=== PATIENT | female | born 2000 | race African-American/Black ===

== ENCOUNTER 2022-02-20 15:40 | Emergency (ER) | payer SELFPAY | END 2022-02-20 17:10 | disposition home or self-care (01) | LOC: CSHERS 15:40 | DX: B34.9 Viral infection, unspecified (principal); J02.9 Acute pharyngitis, unspecified | CPT/HCPCS: 87081; 87430; 87804; 99283 ==

== ENCOUNTER 2022-02-27 10:50 | Emergency (ER) | payer SELFPAY | END 2022-02-27 11:27 | disposition home or self-care (01) | LOC: CSHERS 10:50 | DX: B34.9 Viral infection, unspecified (principal) | CPT/HCPCS: 99282 ==